=== PATIENT | female | born 1995 | race Caucasian/White ===

== ENCOUNTER 2017-07-01 10:43 | Emergency (ER) | payer OTHER ==
--- NOTE | 2017-07-01 10:52 | UC ---
Throat Pain/Nasal Bryant HPI - HPI Summary HPI Summary: nasal congestion and fleeting stabbing pain through left chest wall for a couple of days, no n/v or SOB, no injury or fever - History of Current Complaint Chief Complaint: UCGeneralIllness Stated Complaint: ST/SINUS COMPLAINT Time Seen by Provider: 07/01/17 11:00 Hx Obtained From: Patient Hx Last Menstrual Period: 1 MO AGO ?: No Onset/Duration: Gradual Onset, Lasting Days, Resolved Severity: Mild Pain Intensity: 6 - at its worse Pain Scale Used: 0-10 Numeric Cough: None Associated Signs & Symptoms: Positive: Sinus Discomfort, Nasal Discharge - Allergies/Home Medications Allergies/Adverse Reactions: Allergies Allergy/AdvReac Type Severity Reaction Status Date / Time Penicillins Allergy Rash Verified 07/01/17 10:55 PMH/Surg Hx/FS Hx/Imm Hx Previously Healthy: Yes - Surgical History Surgical History: None - Family History Known Family History: Positive: None - Social History Occupation: Student Lives: With Family Alcohol Use: Occasionally Substance Use Type: None Smoking Status (MU): Never Smoked Tobacco Review of Systems Constitutional: Negative Skin: Negative Eyes: Negative ENT: Negative, Ear Ache, Nasal Discharge, Sinus Congestion Respiratory: Other - stabbing fleeting chest pain Cardiovascular: Negative Gastrointestinal: Negative Genitourinary: Negative Motor: Negative Neurovascular: Negative Musculoskeletal: Negative Neurological: Negative Psychological: Negative All Other Systems Reviewed And Are Negative: Yes Physical Exam Triage Information Reviewed: Yes Appearance: Well-Appearing, No Pain Distress, Well-Nourished Vital Signs Reviewed: Yes Eye Exam: Normal Eyes: Positive: Conjunctiva Clear ENT Exam: Normal ENT: Positive: Normal ENT inspection, Hearing grossly normal, Pharynx normal, TMs normal. Negative: Nasal congestion, Nasal drainage, Trismus, Muffled/ hoarse voice Dental Exam: Normal Neck exam: Normal Neck: Positive: Supple, Nontender Respiratory Exam: Normal Respiratory: Positive: Chest non-tender, Lungs clear, Normal breath sounds, No respiratory distress, No accessory muscle use Cardiovascular Exam: Normal Cardiovascular: Positive: RRR, No Murmur, Pulses Normal, Brisk Capillary Refill Musculoskeletal Exam: Normal Musculoskeletal: Positive: Strength Intact, ROM Intact, No Edema Neurological Exam: Normal Neurological: Positive: Alert, Muscle Tone Normal Psychological Exam: Normal Skin Exam: Normal Throat Pain/Nasal Course/Dx - Course Assessment/Plan: ibuprofen warm compresses for chest wall follow with pcp prn - Differential Dx/Diagnosis Differential Diagnosis/HQI/PQRI: Pharyngitis, Sinusitis, URI, Other - costalchondritis Provider Diagnoses: Costalchondritis, URI Discharge - Discharge Plan Condition: Stable Disposition: HOME Patient Education Materials: Ibuprofen (By mouth), Costochondritis (ED), Chest Wall Pain (ED), Warm Compress or Soak (ED) Referrals: Non Staff,Doctor [Primary Care Provider] - Additional Instructions: [facility] , here,or emergency department for continuing or worsening symptoms
[2017-07-01 10:54] VITALS: BP 125/76
== END 2017-07-01 11:16 | disposition home or self-care (01) ==
LOC: UCCORT 10:43
DX: M94.0 Chondrocostal junction syndrome [Tietze] (principal); J06.9 Acute upper respiratory infection, unspecified
CPT/HCPCS: 99211; G0463